=== PATIENT | female | born 1990 | race Caucasian/White ===

== ENCOUNTER 2020-08-07 09:10 | Outpatient (CLI) | payer OTHER | END 2020-08-07 09:29 | disposition home or self-care (01) | LOC: RX STUDY 09:10 | DX: Q51.828 Other congenital malformations of cervix (principal); Q51.10 Doubling of uterus with doubling of cervix and vagina without obstruction; Z98.891 History of uterine scar from previous surgery ==

== ENCOUNTER 2024-08-26 09:00 | Emergency (ER) | payer OTHER ==
[~2024-08-26] VITALS: Ht 157.5 cm; Wt 63.5 kg
[2024-08-26 10:03] LABS: HEMOGLOBIN 12.2 g/dL (12.0-15.00); MEAN CELL VOLUME 82.4 fL (80.00-100.00); MEAN CORPUSCULAR HEMOGLOBIN 27.2 pg (27.00-32.0); PLATELET COUNT 283 K/uL (150-450); RED BLOOD COUNT 4.49 M/uL (4.00-6.00); RED CELL DISTRIBUTION WIDTH 15.3 % (11.5-14.5)
[2024-08-26 10:19] LABS: CALCIUM 9.2 mg/dL (8.5-10.1); CREATININE SERUM 0.64 mg/dL (0.55-1.02); GFR 105.6; POTASSIUM 4.4 mEq/L (3.5-5.1)
[2024-08-26 11:04] LABS: PH,URINE 5.5 (5.0-8.0); URINE APPEARANCE Cloudy; URINE BILIRRUBIN Negative (NEGATIVE); URINE BLOOD Large; URINE COLOR Yellow; URINE GLUCOSE Negative (NEGATIVE); URINE KETONE Negative (NEGATIVE); URINE LEUKOCYTE Negative; URINE NITRATE Negative; URINE PROTEIN Trace (NEGATIVE); URINE UROBILINOGEN 0.2 E.U./dl
[2024-08-26 11:09] LABS: URINE BACTERIA 4730.5 uL (0.0-1933); URINE EPITHELIAL CELLS 46.3 uL (0.0-38.8); URINE RBC 217.5 uL (0.0-20.8); URINE WBC 11.3 uL (0.0-23.2)
[2024-08-26 11:55] LABS: URINE CAST 0.58 uL (0.0-1.40)
== END 2024-08-26 12:42 | disposition home or self-care (01) ==
LOC: ER 09:03
PROVIDERS: General Practice
DX: N93.9 Abnormal uterine and vaginal bleeding, unspecified (principal); Z34.90 Encounter for supervision of normal pregnancy, unspecified, unspecified trimester; Z91.013 Allergy to seafood